=== PATIENT | male | born 1990 | race Caucasian/White ===

== ENCOUNTER 2019-10-24 21:48 | Emergency (ER) | payer SELFPAY ==
[2019-10-24] MEDS ORDERED: LORazepam 1 MG Tab PO ONE (22:23)
--- NOTE | 2019-10-24 22:33 | EDM.PDOC ---
ED HPI GENERAL MEDICAL PROBLEM - General Chief Complaint: Cardiovascular Problem Stated Complaint: HIGH BP Time Seen by Provider: 10/24/19 22:12 Source of Information: Reports: Patient, RN Notes Reviewed History Limitations: Reports: No Limitations - History of Present Illness INITIAL COMMENTS - FREE TEXT/NARRATIVE: Yonatan presents [place] from [place] with complaints of high blood pressure for the past 12 hours. He was given clonidine x 8 doses, amlodipine and lisinopril without any improvement in hypertension. He denies headache, SOB, difficulty breathing, palpitations, fever, chills, nausea, vomiting, diarrhea, constipation, ringing in ears, change in vision or other concerns. Last drink of ETOH was 4 days ago. He reports he has not had high blood pressure in the past. 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 He reports family history of hypertension. - Related Data Allergies Allergy/AdvReac Type Severity Reaction Status Date / Time No Known Allergies Allergy Verified 10/24/19 22:04 Home Meds: Home Meds NK [No Known Home Meds] 10/24/19 [History] Past Medical History Respiratory History: Reports: Pneumonia, Recurrent Musculoskeletal History: Reports: Fracture Other Musculoskeletal History: collarbone Psychiatric History: Reports: Addiction - Infectious Disease History Infectious Disease History: Reports: Chicken Pox - Past Surgical History HEENT Surgical History: Reports: Tonsillectomy GI Surgical History: Reports: Small Bowel Social & Family History - Tobacco Use Smoking Status *Q: Never Smoker - Caffeine Use Caffeine Use: Reports: Coffee, Soda - Alcohol Use Days Per Week of Alcohol Use: 4 Number of Drinks Per Day: 8 Total Drinks Per Week: 32 - Recreational Drug Use Recreational Drug Use: No ED ROS GENERAL - Review of Systems Review Of Systems: See Below Constitutional: Reports: Other (Hypertension while at [place], last ETOH 4 days ago. 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 ), Bilateral Eye: PERRL Ears: Normal External Exam, Normal Canal, Hearing Grossly Normal, Normal TMs Throat/Mouth: Normal Inspection, Normal Lips, Normal Gums, Normal Oropharynx, Normal Voice, No Airway Compromise Head: Atraumatic, Normocephalic Neck: Normal Inspection, Supple, Non-Tender, Full Range of Motion. No: Lymphadenopathy (R), Lymphadenopathy (L) Respiratory/Chest: No Respiratory Distress, Lungs Clear, Normal Breath Sounds, No Accessory Muscle Use, Chest Non-Tender. No: Crackles, Rales, Rhonchi, Wheezing Cardiovascular: Normal Peripheral Pulses, Regular Rate, Rhythm, No Edema, No Gallop, Systolic Murmur Peripheral Pulses: 2+: Radial (L), Radial (R), Dorsalis Pedis (L), Dorsalis Pedis (R) GI/Abdominal: Normal Bowel Sounds, Soft, Non-Tender, No Organomegaly, No Distention, No Mass. No: Guarding, Rigid, Rebound Back Exam: Normal Inspection, Full Range of Motion. No: CVA Tenderness (R), CVA Tenderness (L) Extremities: Normal Inspection, Normal Range of Motion, Non-Tender, No Pedal Edema, Normal Capillary Refill Neurological: Alert, Oriented, CN II-XII Intact, Normal Cognition, Normal Gait, Normal Reflexes, No Motor/Sensory Deficits Psychiatric: Normal Affect, Normal Mood Skin Exam: Warm, Dry, Intact, Normal Color, No Rash Lymphatic: No Adenopathy EKG INTERPRETATION EKG Date: 10/24/19 Time: 22:37 Rhythm: NSR Rate (Beats/Min): 66 [place]: Normal P-Wave: Present QRS: Normal ST-T: Normal QT: Normal Comparison: NA - No Prior EKG Course - Vital Signs Last Recorded V/S: Last Vital Signs Temp 36.4 C 10/24/19 22:05 Pulse 71 10/24/19 22:54 Resp 16 10/24/19 22:31 BP 180/115 H 10/24/19 22:54 Pulse Ox 96 10/24/19 22:31 - Orders/Labs/Meds Orders: Active Orders 24 hr Category Date Time Status EKG Documentation Completion [RC] ASDIRECTED Care 10/24/19 22:25 Active EKG 12 Lead [EK] Routine Ther 10/24/19 22:23 Ordered Labs: Laboratory Tests 10/24/19 10/24/19 10/24/19 Range/Units 22:38 22:38 22:38 WBC 10.4 (4.5-11.0) K/uL RBC 4.38 (4.30-5.90) M/uL Hgb 14.2 (12.0-15.0) g/dL Hct 43.3 (40.0-54.0) % MCV 99 H (80-98) fL MCH 32 H (27-31) pg MCHC 33 (32-36) % Plt Count 172 (150-400) K/uL Neut % (Auto) 69 H (36-66) % Lymph % (Auto) 19 L (24-44) % [place] % (Auto) 10 H (2-6) % Eos % (Auto) 2 (2-4) % Baso % (Auto) 1 (0-1) % Sodium 140 (140-148) mmol/L Potassium 4.1 (3.6-5.2) mmol/L Chloride 104 (100-108) mmol/L Carbon Dioxide 30 (21-32) mmol/L Anion Gap 6.5 (5.0-14.0) mmol/L BUN 8 (7-18) mg/dL Creatinine 0.8 (0.8-1.3) mg/dL Est Cr Clr Drug Dosing 143.80 mL/min Estimated GFR (MDRD) > 60 (>60) Glucose 121 H (74-106) mg/dL Calcium 8.9 (8.5-10.1) mg/dL Total Bilirubin 0.2 (0.2-1.0) mg/dL AST 69 H (15-37) U/L ALT 107 H (12-78) U/L Alkaline Phosphatase 82 (46-116) U/L Total Protein 7.5 (6.4-8.2) g/dL Albumin 3.6 (3.4-5.0) g/dL Globulin 3.9 H (2.3-3.5) g/dL Albumin/Globulin Ratio 0.9 L (1.2-2.2) TSH, Ultra Sensitive 2.845 (0.358-3.740) uIU/mL Patient labs, EKG and assessment reviewed with Yonatan Aleman will be discharged back to [place] with Metoprolol Tartrate 50mg PO twice a day, amlodipine 10mg PO once a day and lorazepam 1mg PO three times a day PRN. Dr. Yates agrees with plan. Patient notified, he agrees with plan. Meds: Medications Discontinued Medications Generic Name Dose Route Start Last Admin Trade Name Christina PRN Reason Stop Dose Admin Labetalol HCl 100 mg 10/24/19 22:40 10/24/19 22:54 Normodyne PO 10/24/19 22:41 100 mg ONETIME ONE Administration Lorazepam 1 mg 10/24/19 22:23 10/24/19 22:29 Ativan PO 10/24/19 22:24 1 mg ONETIME ONE Administration - Re-Assessments/Exams Free Text/Narrative Re-Assessment/Exam: 10/24/19 23:35 Patient resting, BP 160-170/105-110 He denies complaints. Departure - Departure Time of Disposition: 23:38 Disposition: Home, Self-Care 01 Condition: Good Clinical Impression: Hypertension Referrals: PCP,None [Primary Care Provider] - Forms: ED Department Discharge Additional Instructions: Yonatan has been evaluated and treated for hypertension. EKG shows normal sinus without any abnormalities. CBC, BMP, TSH show no acute findings or signs of renal disease. He was given lorazepam 1mg PO and labetalol 100mg PO while in the emergency room. He remained free of adverse effects. Yonatan is discharged back to [place] with Metoprolol Tartrate 50mg PO twice a day, amlodipine 10mg PO once a day and lorazepam 1mg PO three times a day PRN. Decrease caffeine intake. Return to the emergency for headaches, change in vision, chest pain, SOB, difficulty breathing or any worsening. Follow up with primary provider in 3 to 7 days for assistance with hypertension management. Sepsis Event Note (ED) - Evaluation Sepsis Screening Result: No Definite Risk - Focused Exam Vital Signs: Vital Signs Temp Pulse Pulse Resp BP BP Pulse Ox 10/24/19 22:54 71 180/115 H 10/24/19 22:31 69 16 180/115 H 96 10/24/19 22:05 36.4 C 75 16 194/127 H 96 - My Orders Last 24 Hours: My Active Orders 10/24/19 22:23 EKG 12 Lead [EK] Routine 10/24/19 22:25 EKG Documentation Completion [RC] ASDIRECTED - Assessment/Plan Last 24 Hours: My Active Orders 10/24/19 22:23 EKG 12 Lead [EK] Routine 10/24/19 22:25 EKG Documentation Completion [RC] ASDIRECTED Assessment:: Hypertension Plan: Patient evaluated and treated for hypertension. EKG shows normal sinus without any abnormalities. CBC, BMP, TSH show no acute findings or signs of renal disease. He was given lorazepam 1mg PO and labetalol 100mg PO while in the emergency room. He remained free of adverse effects. Yonatan is discharged back to [place] with Metoprolol Tartrate 50mg PO twice a day, amlodipine 10mg PO once a day and lorazepam 1mg PO three times a day PRN. Decrease caffeine intake. Return to the emergency for headaches, change in vision, chest pain, SOB, difficulty breathing or any worsening. Follow up with primary provider in 3 to 7 days for assistance with hypertension management.
[2019-10-24] MEDS ORDERED: Labetalol 100 MG Tab PO ONE (22:40)
== END 2019-10-24 23:56 | disposition home or self-care (01) ==
LOC: JP.ED 21:48
DX: I10 Essential (primary) hypertension (principal)
CPT/HCPCS: 36415; 80053; 84443; 85025; 93005; 99283; A9270; 93010